=== PATIENT | female | born 1965 | race Caucasian/White ===

== ENCOUNTER 2017-09-30 13:45 | Emergency (ER) | payer BC, OTHER ==
[2017-09-30 13:53] VITALS: BMI 33.7
--- NOTE | 2017-09-30 14:06 | PDOC ---
History of Present Illness - General History Source: Patient Exam Limitations: No Limitations - History of Present Illness Initial Comments: 09/30/17 15:22 The patient is a 51 year old female with past medical history of hypothyroidism , s/p hysterectomy who presents to the ED with complaints of right flank and back pain that began today. She reports a stabbing, nonradiating pain that is 10 /10 in severity. It is associated with two episodes of non-bloody non-bilious vomiting as well. The patient reports a similar episode four days ago while at work which lasted about 45 minutes but was not accompanied by nausea or vomiting. She denies any urinary complaints, fevers, or chills. She also reports a family history of kidney stones as well. She denies any cough, SOB, or CP. <Scarlet Cullen - Last Filed: 09/30/17 15:22> <Eli Zapata - Last Filed: 09/30/17 17:40> - General Chief Complaint: Pain Stated Complaint: RT SIDE PAIN Time Seen by Provider: 09/30/17 14:06 Past History <Scarlet Cullen - Last Filed: 09/30/17 15:22> - Past Medical History COPD: No Seizures: Yes (Hypothyroid) - Suicide/Smoking/Psychosocial Hx Smoking History: Never smoked Have you smoked in the past 12 months: No Hx Alcohol Use: No Drug/Substance Use Hx: No Substance Use Type: None <Eli Zapata - Last Filed: 09/30/17 17:40> - Past Medical History Allergies/Adverse Reactions: Allergies Allergy/AdvReac Type Severity Reaction Status Date / Time No Known Allergies Allergy Verified 09/30/17 13:53 Home Medications: Ambulatory Orders Acetaminophen [Tylenol .Regular Strength -] 650 mg PO Q6H PRN #0 tablet Aspirin Coated [Ecotrin -] 81 mg PO DAILY tablet.ec 03/02/15 Levothyroxine [Synthroid -] 25 mcg PO DAILY@0700 tablet 03/02/15 Review of Systems - Review of Systems Able to Perform ROS?: Yes Comments:: 09/30/17 15:22 GENERAL/CONSTITUTIONAL: No fever or chills. No weakness. HEAD, EYES, EARS, NOSE AND THROAT: No change in vision. No ear pain or discharge. No sore throat. CARDIOVASCULAR: No chest pain or shortness of breath. RESPIRATORY: No cough, wheezing, or hemoptysis. GASTROINTESTINAL: (+) nausea, vomiting. No diarrhea or constipation. GENITOURINARY: No dysuria, frequency, or change in urination. MUSCULOSKELETAL: (+) right lower back pain, right flank pain. No joint or muscle swelling or pain. No neck pain. SKIN: No rash NEUROLOGIC: No headache, vertigo, loss of consciousness, or change in strength/ sensation. ENDOCRINE: No increased thirst. No abnormal weight change. HEMATOLOGIC/LYMPHATIC: No anemia, easy bleeding, or history of blood clots. ALLERGIC/IMMUNOLOGIC: No hives or skin allergy. All Other Systems: Reviewed and Negative <Scarlet Cullen - Last Filed: 09/30/17 15:22> *Physical Exam - Vital Signs Last Vital Signs Temp Pulse Resp BP Pulse Ox 98.3 F 60 18 157/71 100 09/30/17 13:50 09/30/17 13:50 09/30/17 13:50 09/30/17 13:50 09/30/17 13:50 - Physical Exam Comments: 09/30/17 15:23 GENERAL: Awake, alert, and fully oriented, in no acute distress HEAD: No signs of trauma EYES: PERRLA, EOMI, sclera anicteric, conjunctiva clear ENT: Auricles normal inspection, hearing grossly normal, nares patent, oropharynx clear without exudates. Moist mucosa NECK: Normal ROM, supple, no lymphadenopathy, JVD, or masses LUNGS: Breath sounds equal, clear to auscultation bilaterally. No wheezes, and no crackles HEART: Regular rate and rhythm, normal S1 and S2, no murmurs, rubs or gallops ABDOMEN: Soft, nontender, normoactive bowel sounds. No guarding, no rebound. No masses EXTREMITIES: Normal range of motion, no edema. No clubbing or cyanosis. No cords, erythema, or tenderness NEUROLOGICAL: Cranial nerves II through XII grossly intact. Normal speech, normal gait SKIN: Warm, Dry, normal turgor, no rashes or lesions noted. <Scarlet Cullen - Last Filed: 09/30/17 15:22> - Vital Signs Last Vital Signs Temp Pulse Resp BP Pulse Ox 98.3 F 60 18 157/71 100 09/30/17 13:50 09/30/17 13:50 09/30/17 13:50 09/30/17 13:50 09/30/17 13:50 <Eli Zapata - Last Filed: 09/30/17 17:40> ED Treatment Course - LABORATORY CBC & Chemistry Diagram: 09/30/17 15:38 09/30/17 16:49 <Eli Zapata - Last Filed: 09/30/17 17:40> Medical Decision Making - Medical Decision Making 09/30/17 17:15 Pt presents to the ED complaining of two episodes of nausea and vomiting along with R flank pain that has almost resolved. Exam is unremarkable. Labs checked to rule out infection and are negative. UA is negative for blood. Pain may be muscular or patient may have passed a stone, but since the pain is greatly improved I will not get imaging at this time. Patient instructed to return immediately to the ED for worsening symptoms, and to call her PMD for follow up on Sunday. 09/30/17 17:36 <Eli Zapata - Last Filed: 09/30/17 17:40> *DC/Admit/Observation/Transfer - Attestations Scribe Attestion: 09/30/17 15:24 Documentation prepared by Scarlet Cullen, acting as medical records coordinator for Eli Zapata MD. <Scarlet Cullen - Last Filed: 09/30/17 15:22> - Discharge Dispostion Admit: No <Eli Zapata - Last Filed: 09/30/17 17:40> Diagnosis at time of Disposition: Flank pain - Discharge Dispostion Disposition: HOME Condition at time of disposition: Good - Referrals Referrals: Amy Howell MD [Primary Care Provider] - - Patient Instructions Printed Discharge Instructions: DI for Flank Pain Additional Instructions: return to the ED for severe pain, recurrent nausea and vomiting, fever, dysuria , other new or worsening symptoms. Make sure that you call your doctor for follow up on Sunday. - Post Discharge Activity
[2017-09-30 15:47] LABS: BASO % 0.4 % (0-2.0); EOS % 0.3 % (0-4.5); HEMATOCRIT 37.1 % (32.4-45.2); HEMOGLOBIN 12.5 GM/dL (10.7-15.3); LYMPH % 12.2 % (8-40); MCH 26.1 pg (25.7-33.7); MCHC 33.7 g/dl (32.0-36.0); MEAN CELL VOLUME 77.5 fl (80-96); MEAN PLT VOLUME 10.2 fl (7.5-11.1); NEUT % 84.1 % (42.8-82.8); PLATELET COUNT 253 K/MM3 (134-434); RBC 4.79 M/mm3 (3.60-5.2); RDW 14.2 % (11.6-15.6); WHITE BLOOD COUNT 10.6 K/mm3 (4.0-10.0)
[2017-09-30 15:48] LABS: URINE APPEARANCE CLEAR; URINE BILIRUBIN NEGATIVE (<2.0 mg/dL); URINE COLOR LTYELLOW; URINE GLUCOSE (UA) NEGATIVE (NEGATIVE); URINE KETONE NEGATIVE (NEGATIVE); URINE LEUK ESTERASE NEGATIVE (NEGATIVE); URINE NITRITE NEGATIVE (NEGATIVE); URINE PROTEIN NEGATIVE (NEGATIVE); URINE UROBILINOGEN NEGATIVE mg/dL (0.2-1.0)
[2017-09-30 17:22] LABS: ANION GAP 13 (8-16); BLOOD UREA NITROGEN 10 mg/dL (7-18); CHLORIDE 103 mmol/L (98-107); CO2 25 mmol/L (21-32); CREATININE 0.5 mg/dL (0.55-1.02); GLUCOSE,RANDOM 85 mg/dL (74-106); POTASSIUM 3.8 mmol/L (3.5-5.1); SGOT/AST 13 U/L (15-37); SGPT/ALT 18 U/L (12-78); SODIUM 141 mmol/L (136-145)
[2017-09-30 17:24] LABS: ALK PHOS 60 U/L (45-117); BILIRUBIN,TOTAL 0.4 mg/dL (0.2-1.0); TOT PROT 7.4 g/dl (6.4-8.2)
[2017-09-30 17:52] VITALS: BP 132/79; PULSE 61; TEMP 97.9
== END 2017-09-30 17:52 | disposition home or self-care (01) ==
LOC: JER 13:45
DX: R10.31 Right lower quadrant pain (principal)
CPT/HCPCS: 36415; 80053; 81003; 85025; 99282-25

== ENCOUNTER 2019-12-15 09:25 | Inpatient (IN) | payer BC ==
[2019-12-10 17:53] VITALS: BMI 37.0
[2019-12-15] MEDS ORDERED: ONDANSETRON 4 MG/2 ML VIAL IVPUSH PRN ×2 (09:38→14:31)
[2019-12-15] MEDS ORDERED: HYDROmorphone HCL CARPU-JECT 1 MG/1 ML DISP.SYRIN IVPB PRN (09:39)
[2019-12-15] MEDS ORDERED: LACTATED RINGERS SOLUTION 1,000 ML IV SCH (09:45)
[2019-12-15] MEDS ORDERED: ROCURONIUM BROMIDE 50 MG/5 ML SYRINGE ONE (11:55)
[2019-12-15] MEDS ORDERED: PROPOFOL 20 ML ONE ×2 (11:55→14:10)
[2019-12-15] MEDS ORDERED: BUPIVACAINE HCL/PF 0.5% (5 MG/ML) 30 ML VIAL IJ ONE (12:06)
[2019-12-15] MEDS ORDERED: MIDAZOLAM HCL 2 MG/2 ML SINGLE DOSE VIAL ONE (12:06)
[2019-12-15] MEDS ORDERED: LIDOCAINE HCL/PF 2% SDV 5ML VIAL ONE (12:24)
[2019-12-15] MEDS ORDERED: BUPIVACAINE HCL/PF 0.25% (2.5MG/ML) 10 ML VIAL IJ ONE ×2 (13:36→14:30)
[2019-12-15] MEDS ORDERED: NEOSTIGMINE METHYLSULFATE 0.5 MG/ML - 10 ML MDV ONE (13:58)
[2019-12-15] MEDS ORDERED: ONDANSETRON 4 MG/2 ML VIAL ONE (13:58)
[2019-12-15] MEDS ORDERED: GLYCOPYRROLATE 0.2 MG/1 ML VIAL ONE (13:58)
[2019-12-15] MEDS ORDERED: DEXAMETHASONE SOD PHOSPHATE 4 MG/1 ML VIAL ONE (13:58)
[2019-12-15] MEDS ORDERED: ceFAZolin SODIUM 1 GM VIAL ONE (13:58)
[2019-12-15] MEDS ORDERED: DESFLURANE GAS 240 ML BOTTLE IH ONE (14:13)
[2019-12-15] MEDS ORDERED: METOCLOPRAMIDE HCL INJECTION 10 MG/2 ML VIAL IVPUSH PRN (14:32)
--- NOTE | 2019-12-15 14:37 | OP ---
Operative Note - Note: Operative Date: 12/15/19 Pre-Operative Diagnosis: Morbid Obesity. Hypertension Operation: Laparoscopic Vertical Sleeve Gastrectomy. Wedge biopsy of left lobe of liver. Diagnostic Laparoscopy Findings: Greater curve sleeve gastrectomy performed with #[address] Wedge biopsy performed on enlarged left lobe of liver Post-Operative Diagnosis: Same as Pre-op (Hepatomegaly) Surgeon: Valdez Scott Business Technology Analyst: Ty Chowdhury Anesthesia: General Specimens Removed: Greater curve of stomach. Wedge biopsy performed on enlarged left lobe of liver Estimated Blood Loss (mls): 30 Operative Report Dictated: Yes
[2019-12-15] MEDS ORDERED: FAMOTIDINE 20 MG/50 ML IVPB 20 MG/50 ML MG IVPB ONE (14:42)
[2019-12-15] MEDS ORDERED: METOCLOPRAMIDE HCL INJECTION 10 MG/2 ML VIAL ONE (14:42)
[2019-12-15] MEDS ORDERED: ACETAMINOPHEN INJECTION 100 ML IVPB ONE (14:42)
[2019-12-15] MEDS ORDERED: SODIUM CHLORIDE 1,000 ML IV SCH (14:45)
[2019-12-15] MEDS: ACETAMINOPHEN 1000 MG/100 ML VIAL (NON FORMULARY) IVPB SCH ×2 (15:00→21:12)
[2019-12-15 15:17] LABS: HEMOGLOBIN 11.3 GM/dl (10.7-15.3); MCH 23.9 pg (25.7-33.7); MCHC 32.3 g/dl (32.0-36.0); MEAN CELL VOLUME 73.9 fl (80-96); PLATELET COUNT 273 K/MM3 (134-434); RBC 4.73 M/mm3 (3.60-5.2); RDW 12.8 % (11.6-15.6); WHITE BLOOD COUNT 13.5 K/mm3 (4.0-10.8)
[2019-12-15 15:27] LABS: ALBUMIN 3.7 g/dl (3.4-5.0); BILIRUBIN,TOTAL 0.2 mg/dl (0.2-1); CALCIUM 9.2 mg/dl (8.5-10); CREATININE 0.7 mg/dl (0.55-1.3); POTASSIUM 3.7 mmol/L (3.5-5.1); TOT PROT 6.7 g/dl (6.4-8.2)
[2019-12-15] MEDS: HYDROmorphone HCL CARPU-JECT 1 MG/1 ML DISP.SYRIN IVPB PRN (18:00)
--- NOTE | 2019-12-15 18:11 | HP ---
Admitting History and Physical - Past Medical History Cardiovascular: Yes: HTN Endocrine: Yes: Hypothyroidism - Smoking History Smoking history: Never smoked Have you smoked in the past 12 months: No - Alcohol/Substance Use Hx Alcohol Use: No Home Medications - Allergies Allergies/Adverse Reactions: Allergies Allergy/AdvReac Type Severity Reaction Status Date / Time No Known Allergies Allergy Verified 12/10/19 17:41 - Home Medications Home Medications: Ambulatory Orders Amlodipine Besylate 5 mg PO DAILY 12/10/19 Hydrochlorothiazide 25 mg PO DAILY 12/10/19 Levothyroxine [Synthroid -] 75 mcg PO DAILY 12/10/19 Omeprazole 20 mg PO DAILY #30 tab.rap.dr 12/15/19 Oxycodone HCl/Acetaminophen [Percocet 5-325 mg Tablet] 1 tab PO Q6H PRN #20 tablet MDD 4 12/15/19 Review of Systems - Review of Systems Cardiovascular: denies: Chest Pain, Palpitations Respiratory: denies: Orthopnea, SOB Gastrointestinal: reports: Abdominal Pain Physical Examination Vital Signs: Vital Signs Temperature 97.5 F L 12/15/19 16:29 Pulse Rate 89 12/15/19 16:29 Respiratory Rate 18 12/15/19 16:29 Blood Pressure 148/68 12/15/19 16:29 O2 Sat by Pulse Oximetry (%) 94 L 12/15/19 16:29 Cardiovascular: Yes: Regular Rate and Rhythm Respiratory: Yes: Regular, CTA Bilaterally Gastrointestinal: Yes: Soft, Hypoactive Bowel Sounds, Tenderness Labs: CBC, BMP 12/15/19 15:00 12/15/19 15:00 Problem List - Problems (1) S/P laparoscopic sleeve gastrectomy Assessment/Plan: Operative Date: 12/15/19 Pre-Operative Diagnosis: Morbid Obesity. Hypertension Operation: Laparoscopic Vertical Sleeve Gastrectomy. Wedge biopsy of left lobe of liver. Diagnostic Laparoscopy Findings: Greater curve sleeve gastrectomy performed with #[address] Wedge biopsy performed on enlarged left lobe of liver Post-Operative Diagnosis: Same as Pre-op (Hepatomegaly) Surgeon: Valdez Scott Parts Identification Technician: Ty Chowdhury Per surgery follow labs Code(s): Z98.84 - BARIATRIC SURGERY STATUS (2) HTN (hypertension) Assessment/Plan: monitor Selected Entries 12/15/19 12/15/19 15:58 16:29 Blood Pressure 166/74 148/68 ON TELE HR IN 80'S SAT 94% FOLLOW TRENDS Code(s): I10 - ESSENTIAL (PRIMARY) HYPERTENSION (3) Adult hypothyroidism Code(s): E03.9 - HYPOTHYROIDISM, UNSPECIFIED Assessment/Plan FOLLOW CBC
[2019-12-15] MEDS ORDERED: FAMOTIDINE 20 MG/50 ML IVPB 20 MG/50 ML MG IVPB SCH (22:00)
[2019-12-15 22:13] LABS: HEMATOCRIT 34.7 % (32.4-45.2); HEMOGLOBIN 11.1 GM/dl (10.7-15.3); MCH 23.7 pg (25.7-33.7); MCHC 31.9 g/dl (32.0-36.0); MEAN CELL VOLUME 74.3 fl (80-96); MEAN PLT VOLUME 9.4 fl (7.5-11.1); PLATELET COUNT 296 K/MM3 (134-434); RBC 4.67 M/mm3 (3.60-5.2); RDW 12.6 % (11.6-15.6); WHITE BLOOD COUNT 14.9 K/mm3 (4.0-10.8)
[2019-12-15 22:28] LABS: ALBUMIN 3.7 g/dl (3.4-5.0); BILIRUBIN,TOTAL 0.3 mg/dl (0.2-1); CALCIUM 8.6 mg/dl (8.5-10); CREATININE 0.7 mg/dl (0.55-1.3); POTASSIUM 3.8 mmol/L (3.5-5.1); TOT PROT 6.7 g/dl (6.4-8.2)
[2019-12-16] MEDS: ACETAMINOPHEN 1000 MG/100 ML VIAL (NON FORMULARY) IVPB SCH (02:57)
[2019-12-16] MEDS: HYDROmorphone HCL CARPU-JECT 1 MG/1 ML DISP.SYRIN IVPB PRN (06:38)
[2019-12-16 06:44] VITALS: BP 138/67; PULSE 84; TEMP 98.9
[2019-12-16 07:40] LABS: HEMATOCRIT 31.7 % (32.4-45.2); HEMOGLOBIN 10.4 GM/dl (10.7-15.3); MCH 24.2 pg (25.7-33.7); MCHC 32.8 g/dl (32.0-36.0); MEAN CELL VOLUME 73.8 fl (80-96); MEAN PLT VOLUME 9.2 fl (7.5-11.1); PLATELET COUNT 288 K/MM3 (134-434); RDW 12.5 % (11.6-15.6); WHITE BLOOD COUNT 14.9 K/mm3 (4.0-10.8)
[2019-12-16 07:54] LABS: ALBUMIN 3.4 g/dl (3.4-5.0); BILIRUBIN,TOTAL 0.3 mg/dl (0.2-1); CALCIUM 8.5 mg/dl (8.5-10); CREATININE 0.6 mg/dl (0.55-1.3); POTASSIUM 3.6 mmol/L (3.5-5.1)
--- NOTE | 2019-12-16 08:04 | PN ---
Progress Note (short form) - Note Progress Note: 53F POD#1 for laparoscopic sleeve gastrectomy under GA. Pt. doing well this am. No anesthesia related complications.
--- NOTE | 2019-12-16 08:46 | PN ---
Progress Note, Physician History of Present Illness: feels better - Current Medication List Current Medications: Active Medications Acetaminophen (Ofirmev Injection -) 1,000 mg IVPB Q6H DENNIS Stop: 12/16/19 09:38 Last Admin: 12/16/19 02:57 Dose: 1,000 mg Documented by: Hydromorphone HCl (Dilaudid Injection -) 1 mg IVPB Q4H PRN PRN Reason: PAIN LEVEL 1-5 Last Admin: 12/16/19 06:38 Dose: 1 mg Documented by: Famotidine/Sodium Chloride (Pepcid 20 Mg Premixed Ivpb -) 20 mg in 50 mls @ 100 mls/hr IVPB BID DENNIS Last Admin: 12/15/19 21:12 Dose: 100 mls/hr Documented by: Sodium Chloride (Normal Saline -) 1,000 mls @ 150 mls/hr IV ASDIR DENNIS Last Admin: 12/15/19 21:13 Dose: 150 mls/hr Documented by: Metoclopramide HCl (Reglan Injection -) 10 mg IVPUSH Q6H PRN PRN Reason: NAUSEA AND/OR VOMITING Last Admin: 12/15/19 14:45 Dose: 10 mg Documented by: Ondansetron HCl (Zofran Injection) 4 mg IVPUSH Q6H PRN PRN Reason: NAUSEA AND/OR VOMITING - Objective Vital Signs: Vital Signs Temperature 98.9 F 12/16/19 06:42 Pulse Rate 84 12/16/19 06:42 Respiratory Rate 18 12/16/19 06:42 Blood Pressure 138/67 12/16/19 06:42 O2 Sat by Pulse Oximetry (%) 94 L 12/16/19 06:42 Cardiovascular: Yes: Regular Rate and Rhythm Respiratory: Yes: Regular, CTA Bilaterally Gastrointestinal: Yes: Normal Bowel Sounds, Soft. No: Tenderness Labs: CBC, BMP 12/16/19 06:59 12/16/19 06:59 Problem List - Problems (1) S/P laparoscopic sleeve gastrectomy Assessment/Plan: Operative Date: 12/15/19 Pre-Operative Diagnosis: Morbid Obesity. Hypertension Operation: Laparoscopic Vertical Sleeve Gastrectomy. Wedge biopsy of left lobe of liver. Diagnostic Laparoscopy Findings: Greater curve sleeve gastrectomy performed with #[address] Wedge biopsy performed on enlarged left lobe of liver Post-Operative Diagnosis: Same as Pre-op (Hepatomegaly) Surgeon: Valdez Scott Finish Mender: Ty Chowdhury Per surgery follow labs Code(s): Z98.84 - BARIATRIC SURGERY STATUS (2) HTN (hypertension) Assessment/Plan: monitor Selected Entries 12/15/19 12/15/19 15:58 16:29 Blood Pressure 166/74 148/68 ON TELE HR IN 80'S SAT 94% FOLLOW TRENDS Code(s): I10 - ESSENTIAL (PRIMARY) HYPERTENSION (3) Adult hypothyroidism Assessment/Plan: resume meds iv for now Code(s): E03.9 - HYPOTHYROIDISM, UNSPECIFIED
[2019-12-16] MEDS ORDERED: HYDROmorphone HCL/PF 1 MG/ML VIAL IVPB PRN (08:57)
--- NOTE | 2019-12-16 09:47 | PN ---
Progress Note (short form) - Note Progress Note: POD#1 Afebrile; VSS P- 76 (presently) Range- 74-96 BP-138/67 Ambulated earlier with no difficulty P/E- Gen- Awake, alert , NAD No N/V conjunctivae- appear pink (improved from yesterday) Abd- band-aids in place no drainage noted Ext- no swelling or edema WBC-14.9 H/H-10.4/31.7 P- UGI gastrograffin If UGI WNL, begin PO clear liquids- 2 oz PO TID Encourage OOB ambulating Continue SCD's
[2019-12-16] MEDS ORDERED: LEVOTHYROXINE SODIUM 100 MCG VIAL IVPUSH SCH (10:00)
[2019-12-16] MEDS ORDERED: SODIUM CHLORIDE 1,000 ML IV SCH (10:00)
--- NOTE | 2019-12-16 20:45 | OP ---
DATE OF OPERATION: 12/15/2019 ADDENDUM OPERATION: 1. Laparoscopic vertical sleeve gastrectomy. 2. Wedge biopsy of enlarged left lobe of liver. 3. Diagnostic laparoscopy. 4. Over sewing of gastric staple line for hemostasis control. YASMIN WELDON M.D. [id number]
--- NOTE | 2019-12-16 22:03 | OP ---
DATE OF OPERATION: 12/15/2019 PREOPERATIVE DIAGNOSES: 1. Morbid obesity. 2. Hypertension. POSTOPERATIVE DIAGNOSES: 1. Morbid obesity. 2. Hypertension. 3. Hepatomegaly. PROCEDURE PERFORMED: 1. Laparoscopic vertical sleeve gastrectomy. 2. Wedge biopsy of enlarged left lobe of the liver. 3. Diagnostic laparoscopy. OPERATING SURGEON: Valdez Scott MD WRAPPER COUNTER: Ty Chowdhury MD ANESTHESIA: General. EXPECTED BLOOD LOSS: 30 mL. DESCRIPTION OF PROCEDURE: Patient was brought into the operating room, placed on the OR table in a supine position. All precautions were taken initially including padding for the back and the feet, and Venodyne boots were placed on both lower extremities. At that point, the abdomen was prepped and draped in the usual manner. A Veress needle was placed in the left upper quadrant, and a pneumoperitoneum was established. Under direct vision with a laparoscopic camera that was placed through a No. 5 trocar, the trocar was placed under direct vision into the left upper quadrant. Through that trocar then a laparoscopic camera was placed for further visualization of the abdomen. Under direct vision, a No. 15 bladeless trocar was placed in the midline in a supraumbilical position followed by a No. 5 bladeless trocar in the right upper quadrant and No. 5 bladeless trocar below the left costal margin. A Eloy liver retractor was then placed in the epigastrium to retract the left lobe of the liver. The left lobe was noted to be extremely enlarged, and therefore, a wedge biopsy was performed. A LigaSure device was used to make a triangular-shaped incision on the capsule of the liver and then the parenchyma, and this wedge biopsy was sent off the field as a specimen to Pathology. There was minor oozing from the liver parenchyma, which was easily controlled with the electrocautery. At this juncture, anesthesia placed the patient in 20-degree reverse Trendelenburg position. The No. 36 bougie was now advanced into the mid stomach and placed on suction for decompression of the stomach. The pylorus was noted on the distal stomach, and 6 cm were measured proximally from there. Here, the operating surgeon lifted the stomach toward the anterior abdominal wall while the pizza hut assistant surgeon retracted the gastrocolic ligament inferiorly. The LigaSure was then used the dissect the gastrocolic ligament and the short gastric vessels off the greater curve of the stomach. This continued in a superior and vertical direction until the final shorter gastric vessel between the superior pole of the spleen and the proximal fundus was divided. At the junction, anesthesia No. 36 bougie off stomach into the distal part of the stomach and the antrum. With the bougie held along the lesser curvature, a series of carrington were performed with the first being black load carrington 6 cm in length along the bougie. After the first 2 black carrington, a series of purple carrington were performed also 6 cm in length and also along the bougie. When the final staple was fired in the left upper quadrant, the greater curve was now completely detached from the rest of the stomach. It should be noted that prior to firing each staple off the anterior and posterior jose, we checked that they were equal in distance, and in the area of the esophagogastric junction, approximately 1 to 1-1/2 cm serosa remained on the anterior and posterior surfaces. At this juncture, saline was placed around the staple line. Anesthesia injected air, which showed the entire stomach distended. No signs of obstruction or leaks were noted. After the stomach was decompressed, there were 1 or 2 minor areas of bleeding, and for better control of hemostasis, Endo Stitch was run over the entire staple line from the fundus all the way down to the antrum. At this juncture, the stomach was removed through the No. 15 trocar site, and the No. 15 trocar site was closed with Endo Close device to prevent internal hernia and prevent bleeding. Under direct vision, all trocars were removed, and pneumoperitoneum was released. All trocar sites then received 0.25% Marcaine were closed with 4-0 Biosyn in subcuticular fashion except for the midline trocar, which was first closed with 3-0 Vicryl on the subcutaneous tissue followed by 4-0 Biosyn in subcuticular fashion. Dressings were applied. The patient awoken from anesthesia and transferred out of the operating room to the recovery room in stable condition. Marjan [id number]
--- NOTE | 2019-12-19 18:11 | PATH ---
Surgical Pathology Report Patient Name: TITO SOLIS Med. Rec. #: [id number] /Age/Gender: 1965 (Age: 53) / F Account: [id number] Location: [facility] MED-SURG Taken: 12/15/2019 Received: 12/15/2019 Reported: 12/19/2019 Physicians: Valdez Scott M.D. Specimen(s) Received A: GREATER CURVATURE OF STOMACH B: LIVER BIOPSY Clinical History Morbid obesity Final Diagnosis A., GREATER CURVATURE, STOMACH, LAPAROSCOPIC GASTRIC SLEEVE EXCISION: PORTION OF STOMACH SHOWING MODERATE CHRONIC ACTIVE GASTRITIS. IMMUNOSTAIN SHOWS NUMEROUS H. PYLORI ORGANISMS. B. LIVER, BIOPSY: LIVER SHOWING MODERATE STEATOSIS (~60%) WITH PATCHY MILD STEATOHEPATITIS (GRADE 1) AND MODERATE HEPATOCYTE BALLOONING. (SEE COMMENT) TRICHROME STAIN SHOWS PATCHY MILD PERISINUSOIDAL FIBROSIS (STAGE 1). IRON STAIN IS NEGATIVE FOR IRON DEPOSITS. Comment: The Non-Alcoholic Steatosis (WYATT) score is 5/8 (steatosis: 2/3; lobular inflammation: 1/3; hepatocyte balloonin/2). The fibrosis stage is 1(a)/4. Electronically Signed Yessica De La Torre M.D. Gross Description A. Received in formalin, labeled "greater curvature of stomach," is a 155 gram, 20.0 x 4.0 x 3.5 cm. portion of stomach with a stapled margin of resection. The serosa is velasco-boo with minimal attached fat. The mucosa is velasco-pink with normal folds. No mucosal masses are identified. Insurance Instructor sections are submitted in one cassette. B. Received in formalin labeled "liver biopsy," is a 2.7 x 1.0 x 0.6 cm evlasco portion of soft tissue. The specimen is bisected and entirely submitted in one cassette. /12/17/2019 saudi12/17/2019
== END 2019-12-16 11:56 | disposition home or self-care (01) | DRG 621 ==
LOC: FM/S 09:25
PROVIDERS: ADMIT Surgery; ATTEND Surgery
PROC: 0FB24ZX Excision of Left Lobe Liver, Percutaneous Endoscopic Approach, Diagnostic (ICD-10-PCS; 2019-12-15)
PROC: 0DJ04ZZ Inspection of Upper Intestinal Tract, Percutaneous Endoscopic Approach (ICD-10-PCS; 2019-12-15)
PROC: 0DB64Z3 Excision of Stomach, Percutaneous Endoscopic Approach, Vertical (ICD-10-PCS; principal; 2019-12-15 13:19)
DX: E66.01 Morbid (severe) obesity due to excess calories (principal); Z68.37 Body mass index [BMI] 37.0-37.9, adult; I10 Essential (primary) hypertension; R16.0 Hepatomegaly, not elsewhere classified; E03.9 Hypothyroidism, unspecified
CPT/HCPCS: 36415; 74240-TC-FY; 80053; 83036; 84443; 85027; 86850; 86900; 86901; 88305-TC; 94760; J0131